=== PATIENT | female | born 1980 | race African-American/Black ===

== ENCOUNTER 2017-04-09 09:21 | Emergency (ER) | payer OTHER ==
[~2017-04-09] VITALS: Ht 167.6 cm; Wt 117.0 kg
--- NOTE | ~2017-04-09 | EKG ---
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 : 1980 Requested By: Grace Horta Order Number: [id number] MD: Edmund Landrum Measurements Intervals [place] Rate: 77 P: 47 DE: 159 QRS: 31 QRSD: 85 T: 35 QT: 388 QTc: 440 Interpretive Statements Sinus rhythm ST elev, probable normal early repol pattern Baseline wander in lead(s) II,aVF Compared to ECG 01/21/2016 10:11:14 No significant changes Electronically Signed On 04-09-2017 16:33:40 CDT by Edmund Landrum [email or web address] <ELECTRONICALLY SIGNED> By: Edmund Landrum MD, [facility] 04/09/17 1633 3 Edmund Landrum MD, [facility] /EPI
[~2017-04-09 09:21] MED LIST: ACYCLOVIR 800800 MG PO; ALDACTONE25 MG; CARISOPRODOL 3350 MG PO; CITRATE OF MAG296 ML PO; FEMCON FE TABL1 EACH PO; FLEXERIL PO; GLUCOPHAGE500 MG PO; IBUPROFEN 600600 M1 PO; METFORMIN HCL500 MG PO; NAPROSYN500 MG PO; NORCO 5-325 TA1 EACH PO; NORFLEX100 MG PO; PERCOCET 5-3251 EACH PO; PHENERGAN 25 MG25 M1 PO; PREDNISONE 20 M20 M1 PO; PREVACID PO; PREVACID15 MG PO; PRILOSEC 20 MG20 MG PO; PRILOSEC OTC20 MG PO; PROVENTIL HFA6.7 G1 INH; TESSALON PERLE100 MG PO; WELLBUTRIN SR150 MG; ZANTAC 150MG T150 MG PO; ZOFRAN ODT4 MG PO; ZPAK PO
[2017-04-09 09:44] LABS: ABSOLUTE NEUTROPHILS 2.4 thou/uL (1.4-8.2); BASOPHILS 0.7 % (0.0-2.0); EOSINOPHILS 1.2 % (0.0-3.0); HEMATOCRIT 37.6 % (37.0-47.0); HEMOGLOBIN 12.7 gm/dL (12.0-15.0); LYMPHOCYTES 46.4 % (24.0-44.0); MCH 30.4 pg (26.0-34.0); MCHC 33.6 g/dL (28.0-37.0); MCV 90.3 fL (80.0-100.0); MONOCYTES 7.2 % (1.0-8.0); PLATELET COUNT 332 thou/uL (150-400); POLYS 44.5 % (36.0-66.0); RBC 4.17 mil/uL (4.20-5.00); RDW 13.4 % (10.5-14.5); WBC 5.5 thou/uL (4.0-11.0)
[2017-04-09 09:45] LABS: MANUAL DIFF NO
[2017-04-09 09:54] LABS: ANION GAP 7 mmol/L (7-16); BUN 14 mg/dL (7-18); CALCIUM 9.1 mg/dL (8.5-10.1); CHLORIDE 103 mmol/L (98-107); CO2 26 mmol/L (21-32); CREATININE 0.9 mg/dL (0.6-1.0); GLUCOSE 98 mg/dL (74-106); SODIUM 136 mmol/L (136-145)
[2017-04-09 10:03] LABS: TROPONIN-I < 0.04 ng/mL (<0.04-0.07)
[2017-04-09 10:59] LABS: URINE BILIRUBIN NEGATIVE (Negative); URINE BLOOD NEGATIVE (Negative); URINE COLOR YELLOW; URINE GLUCOSE-RANDOM* NEGATIVE (Negative); URINE KETONES NEGATIVE (Negative); URINE NITRITE NEGATIVE (Negative); URINE PROTEIN (DIPSTICK) NEGATIVE (Negative); URINE SPECIFIC GRAVITY 1.025 (1.003-1.035); URINE UROBILINOGEN 0.2 E.U./dl (0.2-1.0)
[2017-04-09] MEDS ORDERED: NORCO 5-325 TA1 EACH PO (11:05)
== END 2017-04-09 11:42 | disposition home or self-care (01) ==
LOC: ER 09:21
PROVIDERS: Emergency Medicine
DX: R07.9 Chest pain, unspecified (principal); K21.9 Gastro-esophageal reflux disease without esophagitis; Z98.51 Tubal ligation status; Z90.710 Acquired absence of both cervix and uterus; Z88.2 Allergy status to sulfonamides; Z88.1 Allergy status to other antibiotic agents

== ENCOUNTER 2017-09-22 22:39 | Emergency (ER) | payer OTHER ==
[~2017-09-22] VITALS: Ht 170.2 cm; Wt 117.9 kg
[2017-09-22 22:41] VITALS: BP 153/97
[2017-09-22] MEDS ORDERED: TRAMADOL 50 MG50 MG PO (23:23)
[2017-09-22] MEDS ORDERED: NAPROSYN500 MG PO (23:23)
[2017-09-22] MEDS ORDERED: NORFLEX100 MG PO (23:23)
== END 2017-09-23 00:06 | disposition home or self-care (01) ==
LOC: ER 22:39
DX: M54.40 Lumbago with sciatica, unspecified side (principal); E66.9 Obesity, unspecified; K21.9 Gastro-esophageal reflux disease without esophagitis; Z90.49 Acquired absence of other specified parts of digestive tract; Z90.710 Acquired absence of both cervix and uterus; Z88.2 Allergy status to sulfonamides

== ENCOUNTER 2017-12-19 13:12 | Emergency (ER) | payer OTHER ==
[~2017-12-19] VITALS: Ht 167.6 cm; Wt 117.9 kg
[~2017-12-19 13:12] MED LIST changes: +TRAMADOL 50 MG50 MG PO
[2017-12-19] MEDS ORDERED: HYDROCHLOROTHIA25 M1 PO (13:22)
[2017-12-19] MEDS ORDERED: METFORMIN HCL500 M2 PO (13:22)
[2017-12-19 13:33] LABS: URINE BILIRUBIN NEGATIVE (Negative); URINE BLOOD TRACE (Negative); URINE CLARITY CLEAR; URINE COLOR YELLOW; URINE GLUCOSE-RANDOM* NEGATIVE (Negative); URINE KETONES NEGATIVE (Negative); URINE LEUKOCYTES NEGATIVE (Negative); URINE NITRITE NEGATIVE (Negative); URINE PROTEIN (DIPSTICK) NEGATIVE (Negative); URINE SPECIFIC GRAVITY >= 1.030 (1.005-1.035); URINE UROBILINOGEN 0.2 E.U./dl (0.2-1.0)
[2017-12-19 14:01] LABS: ABSOLUTE NEUTROPHILS 2.5 thou/uL (1.4-8.2); BASOPHILS 0.9 % (0.0-2.0); EOSINOPHILS 0.9 % (0.0-3.0); HEMATOCRIT 40.2 % (37.0-47.0); HEMOGLOBIN 13.7 gm/dL (12.0-15.0); LYMPHOCYTES 41.4 % (24.0-44.0); MCH 30.6 pg (26.0-34.0); MCHC 34.1 g/dL (28.0-37.0); MCV 89.8 fL (80.0-100.0); MONOCYTES 7.1 % (1.0-8.0); PLATELET COUNT 390 thou/uL (150-400); POLYS 49.7 % (36.0-66.0); RBC 4.48 mil/uL (4.20-5.00); RDW 13.5 % (10.5-14.5)
[2017-12-19 14:09] LABS: CALCIUM 9.6 mg/dL (8.5-10.1); POTASSIUM 3.7 mmol/L (3.5-5.1)
[2017-12-19] MEDS ORDERED: TIZANIDINE HCL4 MG PO (15:09)
[2017-12-19] MEDS ORDERED: IBUPROFEN 600600 M1 PO (15:09)
[2017-12-19] MEDS ORDERED: ONDANSETRON HCL4 M2 PO (15:11)
== END 2017-12-19 15:47 | disposition home or self-care (01) ==
LOC: ER 13:12
PROVIDERS: Emergency Medicine
DX: R10.9 Unspecified abdominal pain (principal); M54.9 Dorsalgia, unspecified; K21.9 Gastro-esophageal reflux disease without esophagitis; Z90.710 Acquired absence of both cervix and uterus; Z90.49 Acquired absence of other specified parts of digestive tract; Z88.2 Allergy status to sulfonamides